=== PATIENT | female | born 1955 | race Two or more races ===

== ENCOUNTER 2020-02-15 12:21 | Emergency (ER) | payer MEDICAID, OTHER ==
[~2020-02-15] VITALS: Ht 167.6 cm; Wt 63.5 kg
--- NOTE | 2020-02-15 13:49 | Emergency Room Report ---
History of Present Illness General Chief Complaint: Upper Extremity Injury Source: Patient Present Illness HPI 64-year-old female presents to the emergency department brought by her complaining of 5 out of 10 severity pain, tenderness and mild swelling in the right wrist status post mechanical fall yesterday. Patient reports she attempted to break her fall with her right arm. Patient reports she is right- hand dominant. Patient reports some bruising and swelling. She denies having any midline neck or back pain. She Denies numbness tingling or loss of sensation or gross motor movements of the extremities, incontinence of bowel or bladder. Denies CP, Palpitations, LOC, AMS, dizziness, Changes in Vision, weakness or a sudden severe headache. 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 Patient History Past Medical History: see triage record Past Surgical History: none Pertinent Family History: none Now: No Reviewed Nursing Documentation: PMH: Agreed; PSxH: Agreed Nursing Documentation-PMH Past Medical History: No Stated History Review of Systems All Other Systems: negative except mentioned in HPI Physical Exam Vital Signs Date Time Temp Pulse Resp B/P (MAP) Pulse Ox O2 Delivery O2 Flow Rate FiO2 02/15/20 13:37 97.7 71 16 117/67 (84) 99 Room Air Sp02 EP Interpretation: reviewed, normal General Appearance: no apparent distress, alert, GCS 15, non-toxic Head: normocephalic, atraumatic Eyes: bilateral eye normal inspection, bilateral eye PERRL ENT: hearing grossly normal, normal voice Neck: other - Pain with attempt to ROM of right wrist. Respiratory: lungs clear, normal breath sounds, speaking full sentences Cardiovascular #1: regular rate, rhythm, normal capillary refill Cardiovascular #2: 2+ radial (R), 2+ radial (L) Musculoskeletal: normal range of motion, gait/station normal, tender - Right wrist + Snuff box ttp., swelling - right wrist Neurologic: alert, motor strength/tone normal, oriented x3, sensory intact, responsive, speech normal, grossly normal Psychiatric: judgement/insight normal Skin: Ecchymosis/Bruising - mildly to the lateral aspect of the right wrist Medical Decision Making PA Attestation Dr. Quevedo is my supervising Physician whom patient management has been discussed with. Diagnostic Impression: Primary Impression: Radius distal fracture Qualified Codes: S52.501A - Unspecified fracture of the lower end of right radius, initial encounter for closed fracture Additional Impression: Snuff box tenderness ER Course 64-year-old female presents to the emergency department brought by her complaining of 5 out of 10 severity pain, tenderness and mild swelling in the right wrist status post mechanical fall yesterday. Patient reports she attempted to break her fall with her right arm. Patient reports she is right- hand dominant. Patient reports some bruising and swelling. She denies having any midline neck or back pain. She Denies numbness tingling or loss of sensation or gross motor movements of the extremities, incontinence of bowel or bladder. Denies CP, Palpitations, LOC, AMS, dizziness, Changes in Vision, weakness or a sudden severe headache. Ddx considered but are not limited to Fracture, dislocation, contusion, Sprain/ Strain/Spasm, scaphoid injury, wrist drop just to name a few. Vital signs: are WNL, pt. is afebrile H&PE are most consistent with musculoskeletal injury will perform imaging to r/ o fractures/dislocations. -- PT. w. pos. snuff box ttp = thumb Spika ORDERS: - X-ray Right wrist 3 views POSITIVE for DISTAL RADIUS FX. ED INTERVENTIONS: - Tylenol # 3 PO -Right Thumb spika splint applied by laboratory technician. Pt. remains neurovascularly intact. -- Right arm Sling applied by laboratory technician. Pt. remains neurovascularly intact. DISCHARGE: At this time pt. is stable for d/c to home. Will provide printed patient care instructions, and any necessary prescriptions. Care plan and follow up instructions have been discussed with the patient prior to discharge. Other X-Ray Diagnostic Results Other X-Ray Diagnostic Results : X-Ray ordered: Right wrist # of Views/Limited Vs Complete: 3 View Indication: Pain EP Interpretation: Yes PA Xray: Interpretation reviewed, by supervising MD, and agrees with findings. Interpretation: no dislocation, no soft tissue swelling, other - Distal radius fx. Impression: No acute disease Electronically Signed by: Sharyn Kulkarni PA-C Last Vital Signs Date Time Temp Pulse Resp B/P (MAP) Pulse Ox O2 Delivery O2 Flow Rate FiO2 02/15/20 13:37 97.7 71 16 117/67 (84) 99 Room Air Disposition: HOME, SELF-CARE Condition: Stable Scripts Ibuprofen* (MOTRIN*) 400 Mg Tablet 400 MG ORAL THREE TIMES A DAY, #30 TAB 0 Refills Prov: Sharyn Kulkarni 02/15/20 Acetaminophen With Codeine (T#3) (TYLENOL #3 TAB*) Y Tab 1 TAB ORAL Q6HR PRN for For Pain, #12 TAB Prov: Sharyn Kulkarni 02/15/20 Referrals: Orthopedic Urgent Care Patient Instructions: Wrist Fracture Additional Instructions: Take medications as directed. Follow up with an CARD PROCESSING CLERK in 3-5 days, even if your symptoms have resolved. If symptoms persist MRI may be required at the discretion of your PCP or Ortho Specialist. --Please review list of primary care clinics, if you do not already have a primary care provider who can give you an Orthopedic Referral. Return sooner to ED if new symptoms occur, or current symptoms become worse. Do not drink alcohol, drive, or operate heavy machinery while taking Tylenol # 3 as this may cause drowsiness. - Please note that this Emergency Department Report was dictated using [employer] paster technology software, occasionally this can lead to erroneous entry secondary to interpretation by the dictation equipment. Sharyn Kulkarni Feb 15, 2020 13:49
[2020-02-15 14:01] VITALS: BP 117/67
[2020-02-15] MEDS ORDERED: Tylenol #3 tab (300mg/30mg) ORAL ONE (14:30)
[2020-02-15] MEDS ORDERED: ACETAMINOPHEN-1 EAC1 ORAL (14:46)
[2020-02-15] MEDS ORDERED: IBUPROFEN400 MG ORAL (14:46)
[2020-02-15 14:53] VITALS: BP 117/67
--- NOTE | 2020-02-15 15:03 | Diagnostic Imaging Report ---
EXAM: X-RAY XRAY Wrist Complete R CLINICAL HISTORY: Wrist pain. COMPARISON: None FINDINGS: Total of free views of the right wrist were obtained. There is a distal radial fracture with intra-articular extension. The other bony appendages are intact. Joint spaces are unremarkable. Soft tissue swelling noted. IMPRESSION: DISTAL RADIAL FRACTURE WITH INTRA-ARTICULAR EXTENSION.
== END 2020-02-15 15:00 | disposition home or self-care (01) ==
LOC: EMR 14:45
DX: S52.501A Unspecified fracture of the lower end of right radius, initial encounter for closed fracture (principal); M25.531 Pain in right wrist; W19.XXXA Unspecified fall, initial encounter; Y92.9 Unspecified place or not applicable
CPT/HCPCS: 29125; 73110; Z7502; 99283